=== PATIENT | male | born 1995 | race African-American/Black ===

== ENCOUNTER 2022-11-29 22:25 | Emergency (ER) | payer OTHER, SELFPAY ==
--- NOTE | ~2022-11-29 | XR_ITS ---
Clinical Indication: Chest pain PA and lateral views of the chest: Comparison: None Findings: The lungs are clear, without evidence of focal consolidation or pleural effusion. Cardiome diastinal silhouette is within normal limits. Bones and soft tissues are unremarkable. Impression: Normal chest. Reviewed, dictated and finalized at location . Impression: Normal chest.
[2022-11-29 22:29] VITALS: BP 146/85; PULSE 72; RESP 18; TEMP 36.4; O2SAT 100
--- NOTE | 2022-11-29 22:29 | ECG_ITS ---
Measurements Intervals [place] Rate: 62 P: 44 WI: 155 QRS: 39 QRSD: 90 T: 42 QT: 351 QTc: 359 Interpretive Statements SINUS RHYTHM NORMAL ECG NO PREVIOUS ECG AVAILABLE FOR COMPARISON Electronically Signed On 11-29-2022 22:38:05 CDT by Jono Reynoso D.O.
--- NOTE | 2022-11-29 23:00 | ED.CHESTPAIN ---
HPI - Chest Pain General Chief Complaint: Chest Pain Stated Complaint: Chest pain Time Seen by Provider: 11/29/22 22:58 History of Present Illness HPI narrative: Patient is a 27-year-old male here due to concerns over chest pain. Patient states has had a stabbing sensation in the center of his chest x3 days. No radiation. Pain is not worse with deep breaths or movement. Has had no shortness of breath, nausea or vomiting, fevers or chills. The also had a left-sided tooth ache x3 days that he believes is related to his chest pain. He has had dental extraction in the past but has not seen a dentist for many years. Related Data Allergies Allergy/AdvReac Type Severity Reaction Status Date / Time No Known Allergies Allergy Verified 11/29/22 22:26 Review of Systems Review of Systems: Gen.: Denies fevers or chills Eyes: Denies eye pain or visual change ENT: Reports dental pain Respiratory: Denies shortness of breath or cough CV: Reports chest pain GI: Denies abdominal pain nausea, emesis or diarrhea denies burning, urgency, frequency or hematuria Musculoskeletal: Denies back pain or muscle pain Neuro: Denies numbness, tingling, weakness or focal weakness Skin: Denies rash Except as documented, all other systems reviewed and negative Exam Narrative: APPEARANCE: Well appearing, no pain in distress, well-nourished. Head: Normocephalic and atraumatic. EYES: PERRLA/EOMI, conjunctivae clear NOSE: No nasal drainage EARS: External ear normal in appearance THROAT: Numerous dental caries throughout oropharynx. There is a cracked lower molar on the left that patient states is painful. No visible abscess. NECK: Supple. No adenopathy, no masses. RESPIRATORY: Airway patent, respirations nonlabored. Clear to auscultation bilaterally, no rales, rhonchi, wheezing. CARDIOVASCULAR: Regular rate and rhythm without murmurs, rubs, or gallops. ABDOMINAL: Normoactive bowel sounds. Soft, nontender, nondistended. No rebound tenderness or guarding. MUSCULOSKELETAL: Extremities are warm and well-perfused. Moves all extremities well. No edema. NEURO: Normal speech. No focal neurologic deficits. SKIN: Skin is warm and dry. No rashes. PSYCHIATRIC: Normal affect/mood.. Course Vital Signs Vital signs: Vital Signs Temperature 97.5 F L 11/29/22 22:29 Pulse Rate 72 11/29/22 22:29 Respiratory Rate 18 11/29/22 22:29 Blood Pressure 146/85 H 11/29/22 22:29 Pulse Oximetry 100 11/29/22 22:29 Oxygen Delivery Room Air 11/29/22 22:29 Temperature 98 F 11/30/22 01:02 Pulse Rate 69 11/30/22 01:02 Respiratory Rate 18 11/30/22 01:02 Blood Pressure 123/79 11/30/22 01:02 Pulse Oximetry 99 11/30/22 01:02 Oxygen Delivery Room Air 11/29/22 23:06 MDM - Chest Pain MDM Narrative Medical decision making narrative: 27-year-old male here for evaluation of dental pain and chest pain x2 days. He is nontoxic in appearance and has normal vital signs. He does have poor dentition and numerous dental caries in the area of his pain. Chest pain work-up reassuring, EKG labs and chest x-ray normal. Patient feeling proved after ibuprofen. Will DC home with antibiotics and for patient to keep outpatient dental f/u. Return precautions discussed and he voiced understanding. Lab Data 11/29/22 23:16 11/29/22 23:16 Labs: Lab Results 11/29/22 11/29/22 Range/Units 23:16 23:16 WBC 6.1 (4.5-10.0) K/mm3 RBC 5.75 (4.6-6.20) M/mm3 Hgb 15.9 (14.0-18.0) g/dL Hct 47.5 (42.0-52.0) % MCV 82.6 (80-100) fl MCH 27.7 (26-34) pg MCHC 33.5 (32-36) g/dl RDW 14.5 (11.5-14.5) % Plt Count 179 (150-375) k/mm3 MPV 10.6 H (7.4-10.4) fl Immature Gran % (Auto) 0.2 (0-0.5) % Neut % (Auto) 51.4 (45.5-73.1) % Lymph % (Auto) 39.7 (18.3-44.2) % [place] % (Auto) 6.4 (2.6-8.5) % Eos % (Auto) 1.8 (0-4.4) % Baso % (Auto) 0.5 (0.2-1.2) % Lymph # (Auto) 2.41 (0.9-3.2) K
[2022-11-29 23:06] VITALS: O2SAT 99
[2022-11-29 23:22] LABS: Basophils Percent Auto 0.5 % (0.2-1.2); Eosinophils Absolute Auto 0.1 K/mm3 (0-0.3); Eosinophils Percent Auto 1.8 % (0-4.4); Hematocrit 47.5 % (42.0-52.0); Hemoglobin 15.9 g/dL (14.0-18.0); Immature Granulocyte Absolute 0.01 K/mm3 (0.00-0.031); Immature Granulocyte Percent A 0.2 % (0-0.5); Lymphocytes Absolute Auto 2.41 K/mm3 (0.9-3.2); Lymphocytes Percent Auto 39.7 % (18.3-44.2); Mean Corpuscular HGB Conc 33.5 g/dl (32-36); Mean Corpuscular Hemoglobin 27.7 pg (26-34); Mean Corpuscular Volume 82.6 fl (80-100); Mean Platelet Volume 10.6 fl (7.4-10.4); Monocytes Absolute Auto 0.4 K/mm3 (0.1-0.6); Monocytes Percent Auto 6.4 % (2.6-8.5); Neutrophils Absolute Auto 3.1 K/mm3 (1.3-6.7); Neutrophils Percent Auto 51.4 % (45.5-73.1); Platelet Count Result 179 k/mm3 (150-375); Red Blood Count 5.75 M/mm3 (4.6-6.20); Red Cell Distribution Width 14.5 % (11.5-14.5); White Blood Count 6.1 K/mm3 (4.5-10.0)
[2022-11-29] MEDS: IBUPROFEN 600 MG TABLET PO (23:23)
[2022-11-29 23:45] LABS: Alanine Aminotransferase 34 U/L (6-50); Albumin Level 4.5 g/dL (3.5-5.1); Alkaline Phosphatase 59 U/L (38-126); Anion Gap 7 mmol/L (8-16); Aspartate Amino Transferase 29 U/L (17-59); Bilirubin,Total 0.4 mg/dL (0.2-1.3); Blood Urea Nitrogen 14 mg/dL (9-20); Calcium 8.9 mg/dL (8.4-10.2); Carbon Dioxide 26 mmol/L (22-30); Chloride 106 mmol/L (98-107); Estimated CRCL calculation 117 ml/min; Estimated Glomerular Filt Rate > 60; Glucose 105 mg/dL (65-110); Lipase 146 U/L (23-300); Sodium 139 mmol/L (137-145)
[2022-11-29 23:56] LABS: Troponin I < 0.012 ng/mL (0.000-0.034)
[2022-11-30 01:02] VITALS: BP 123/79; PULSE 69; RESP 18; TEMP 36.6; O2SAT 99
== END 2022-11-30 01:02 | disposition home or self-care (01) ==
PROVIDERS: Emergency Provider Physician Assistant
DX: R07.9 Chest pain, unspecified (principal); K08.89 Other specified disorders of teeth and supporting structures
CPT/HCPCS: 36415; 71046; 80053; 83690; 84484; 85025; 93005; 99284; A9270

== ENCOUNTER 2023-09-27 18:52 | Emergency (ER) | payer OTHER, SELFPAY ==
[2023-09-27 19:05] VITALS: BP 131/81; PULSE 73; RESP 16; TEMP 37.1; O2SAT 99
--- NOTE | 2023-09-27 19:27 | ED.GENADULT ---
HPI - General Adult General Chief complaint: Unspecified Stated complaint: chest pains, left leg pain Time Seen by Provider: 09/27/23 19:27 Source: patient Mode of arrival: ambulatory Limitations: no limitations History of Present Illness HPI narrative: 28 yo M presents with c/o chronic pain to L hip related to screws placed several years ago from old injury. Requesting something stronger than ibuprofen or tylenol . Also reports indigestion for 2 days. has not taken anything OTC. REquesting prescription. Asking for work note. All systems reviewed and negative except as noted above. Related Data Allergies Allergy/AdvReac Type Severity Reaction Status Date / Time No Known Allergies Allergy Verified 09/27/23 19:03 Review of Systems Review of Systems: CONSTITUTIONAL: Denies fever, chills, or sweats. EYES: Denies visual changes, redness, or discharge. ENT: Denies rhinorrhea, congestion, sore throat, or otalgia. CARDIOVASCULAR: Denies chest pain, palpitations, or edema. RESPIRATORY: Denies cough or dyspnea. GASTROINTESTINAL: Denies abdominal pain, nausea, vomiting, or diarrhea. Reports indigestion. GENITOURINARY: Denies dysuria or hematuria. SKIN: Denies rash or itching. MUSCULOSKELETAL: Denies back pain or myalgia. Reports left hip pain. NEUROLOGIC: Denies headache, numbness, or weakness. PSYCHIATRIC: Denies anxiety or depression. All other systems reviewed are negative, except as documented in HPI. PMFSH Comments At time of signature, agree with nursing past medical, surgical, social and family history. There is no relevant family history pertinent to the presenting complaint. Exam Narrative: GENERAL: This is a well-nourished, well-developed patient, in no apparent distress. HEAD: normocephalic, atraumatic. EYES: PERRL. Sclera clear/white. Vision is grossly intact. EARS: External ears normal NOSE: External nose normal NECK: Neck supple, non-tender without lymphadenopathy, masses or thyromegaly. CARDIOVASCULAR: Regular rate and rhythm without murmurs, gallops, or rubs. RESPIRATORY: Clear to auscultation. Breath sounds equal bilaterally. No wheezes, rales, or rhonchi. SKIN: warm, Dry, intact with no suspicious lesions or rash, good texture and turgor. NEURO: awake, alert, and oriented to person, place and time. There were no obvious focal neurologic abnormalities. EXTREMITIES: No joint tenderness, effusion, or edema noted. Course Course Level of Care: Express Care Visit Vital Signs Vital signs: Vital Signs Temperature 37.1 C 09/27/23 19:05 Pulse Rate 73 09/27/23 19:05 Respiratory Rate 16 09/27/23 19:05 Blood Pressure 131/81 09/27/23 19:05 Pulse Oximetry 99 09/27/23 19:05 Oxygen Delivery Room Air 09/27/23 19:05 Temperature 37.1 C 09/27/23 19:05 Pulse Rate 73 09/27/23 19:05 Respiratory Rate 16 09/27/23 19:05 Blood Pressure 131/81 09/27/23 19:05 Pulse Oximetry 99 09/27/23 19:05 Oxygen Delivery Room Air 09/27/23 19:05 Reviewed Medical Decision Making MDM Narrative Medical decision making narrative: Patient is aware of diagnosis, understands and agrees to treatment plan. Anticipatory guidance given. Patient agrees to follow-up as directed and is aware of reasons to seek care at the emergency department. Portions of this record may have been created with voice recognition software recommend patient follow-up with primary care physician for pain control for chronic left hip pain. Vital Signs Vital Signs: Vital Signs Temperature 37.1 C 09/27/23 19:05 Pulse Rate 73 09/27/23 19:05 Respiratory Rate 16 09/27/23 19:05 Blood Pressure 131/81 09/27/23 19:05 Pulse Oximetry 99 09/27/23 19:05 Oxygen Delivery Room Air 09/27/23 19:05 Temperature 37.1 C 09/27/23 19:05 Pulse Rate 73 09/27/23 19:05 Respiratory Rate 16 09/27/23 19:05 Blood Pressure 131/81 09/27/23 19:05 Pulse Oximetry 99 09/27/23 19:05 Oxygen
== END 2023-09-27 19:45 | disposition home or self-care (01) ==
PROVIDERS: Emergency Provider Nurse Practitioner Family
DX: K30 Functional dyspepsia (principal); G89.21 Chronic pain due to trauma; M25.552 Pain in left hip; K21.9 Gastro-esophageal reflux disease without esophagitis
CPT/HCPCS: 99213; G0463

== ENCOUNTER 2024-01-21 06:29 | Emergency (ER) | payer OTHER, MEDICAID, SELFPAY ==
--- NOTE | ~2024-01-21 | XR_ITS ---
Clinical Indication: Cough PA and lateral views of the chest: Comparison: 11/29/2022 Findings: The lungs are clear, without evidence of focal consolidation or pleural effusion. Cardiome diastinal silhouette is within normal limits. Bones and soft tissues are unremarkable. Impression: Normal chest. Reviewed, dictated and finalized at location . Impression: Normal chest.
[2024-01-21 06:28] VITALS: BP 121/83; PULSE 84; RESP 18; TEMP 36.7; O2SAT 100; O2SAT 99
--- NOTE | 2024-01-21 06:39 | ECG_ITS ---
SEE SCANNED COPY FOR CONFIRMED REPORT MTDD
[2024-01-21 06:48] LABS: Basophils Percent Auto 0.5 % (0.2-1.2); Eosinophils Absolute Auto 0.1 K/mm3 (0-0.3); Eosinophils Percent Auto 1.6 % (0-4.4); Hematocrit 51.4 % (42.0-52.0); Hemoglobin 16.8 g/dL (14.0-18.0); Immature Granulocyte Absolute 0.04 K/mm3 (0.00-0.031); Immature Granulocyte Percent A 0.5 % (0-0.5); Lymphocytes Absolute Auto 2.89 K/mm3 (0.9-3.2); Lymphocytes Percent Auto 39.3 % (18.3-44.2); Mean Corpuscular HGB Conc 32.7 g/dl (32-36); Mean Corpuscular Hemoglobin 27.2 pg (26-34); Mean Corpuscular Volume 83.2 fl (80-100); Mean Platelet Volume 10.3 fl (7.4-10.4); Monocytes Absolute Auto 0.4 K/mm3 (0.1-0.6); Monocytes Percent Auto 5.9 % (2.6-8.5); Neutrophils Absolute Auto 3.8 K/mm3 (1.3-6.7); Neutrophils Percent Auto 52.2 % (45.5-73.1); Platelet Count Result 190 k/mm3 (150-375); Red Blood Count 6.18 M/mm3 (4.6-6.20); Red Cell Distribution Width 14.6 % (11.5-14.5); White Blood Count 7.4 K/mm3 (4.5-10.0)
[2024-01-21 07:02] LABS: Alanine Aminotransferase 30 U/L (6-50); Albumin Level 4.7 g/dL (3.5-5.1); Alkaline Phosphatase 60 U/L (38-126); Anion Gap 10 mmol/L (4-12); Aspartate Amino Transferase 30 U/L (17-59); Bilirubin,Total 0.8 mg/dL (0.2-1.3); Blood Urea Nitrogen 11 mg/dL (9-20); Calcium 8.8 mg/dL (8.4-10.2); Carbon Dioxide 21 mmol/L (22-30); Chloride 109 mmol/L (98-107); Estimated CRCL calculation 117 ml/min; Estimated Glomerular Filt Rate > 60; Glucose 108 mg/dL (65-110); Sodium 140 mmol/L (137-145)
[2024-01-21 07:18] VITALS: BP 143/91; PULSE 84; RESP 22; O2SAT 100
[2024-01-21 07:25] LABS: Influenza A QL RT-PCR Negative (Negative); Influenza B QL RT-PCR Negative (Negative); RSV RNA, RT-PCR Negative (Negative); SARS-CoV-2 RNA PCR Negative (Negative)
[2024-01-21] MEDS: KETOROLAC 15 MG/ML VIAL (*BKC) IV PUSH (07:34)
--- NOTE | 2024-01-21 07:41 | ED.SOB ---
HPI - SOB/Dyspnea General Chief Complaint: Shortness of Breath/Dyspnea Stated Complaint: cp and sob awoken from sleep Time Seen by Provider: 01/21/24 06:58 History of Present Illness HPI Narrative: Patient states that he had some epigastric discomfort and nausea, got up, felt like something was stuck in his throat, cough to few times, the abdominal pain has resolved and so was nausea and so as a feeling of something in his chest, however he is still having a cough, and some chest pain when he coughs. Related Data Allergies Allergy/AdvReac Type Severity Reaction Status Date / Time No Known Allergies Allergy Verified 09/27/23 19:03 Review of Systems Review of Systems: All systems reviewed & are unremarkable except as noted in HPI and below Exam Narrative: EXAMINATION OF ORGAN SYSTEMS/BODY AREAS: Constitutional: Vital signs per nursing GENERAL:[No acute distress, non-toxic appearing.] HEAD: Normal with no signs of head trauma. EYES: EOMI, conjunctiva normal ENT: Hearing grossly intact LUNGS: Nonlabored breathing. Clear to auscultation bilaterally HEART: [Regular rate and rhythm] ABD: [Soft], [nontender to palpation] EXT: Normal range of motion SKIN: [No rashes or lesions.] NEURO: [Alert and oriented x 3. No gross focal sensory or strength deficits.] PSYCH: Normal affect Course Vital Signs Vital signs: Vital Signs Temperature 98.1 F 01/21/24 06:28 Pulse Rate 84 01/21/24 06:28 Respiratory Rate 18 01/21/24 06:28 Blood Pressure 121/83 01/21/24 06:28 Pulse Oximetry 99 01/21/24 06:28 Oxygen Delivery Room Air 01/21/24 06:28 Temperature 98.1 F 01/21/24 08:04 Pulse Rate 62 01/21/24 08:21 Respiratory Rate 18 01/21/24 08:21 Blood Pressure 138/90 01/21/24 08:21 Pulse Oximetry 99 01/21/24 08:21 Oxygen Delivery Room Air 01/21/24 06:28 MDM - SOB/Dyspnea MDM Narrative Medical decision making narrative: ED COURSE AND MEDICAL DECISION MAKIN-year-old male presenting with cough and shortness of breath. EKG done in triage negative for acute ischemic changes. Cardiac workup is initiated. EKG: Performed in triage and interpreted by me. Normal sinus rhythm. Rate [76]. Normal axis. MI normal. QRS duration normal. QTc normal. No pathologic Q waves. No ST segment elevation or depression to suggest acute ischemia. No RV strain pattern. Chest x-ray on my independent interpretation with no consolidation or pneumothorax No acute ischemic changes on EKG or risk factors making ACS unlikely. Wells low risk with negative PERC making PE unlikely. Presentation not consistent with dissection or aneurysm without radiation of pain or pulse deficits. CXR negative for mediastinal widening. No abdominal pain or signs of sepsis that would be concerning for esophageal perforation or mediastinitis. No cardiomegaly or JVD to suggest pericardial effusion/tamponade. On repeat evaluation just prior to discharge, the patient is no acute distress. I had a long discussion with the patient and with shared decision making, [he] is comfortable with outpatient management. [He] was given clear return instructions by myself in person as well as on discharge paperwork. Procedures: Pulse oximetry interpretation - not hypoxic. EKG interpretation. Review of medical records. Lab Data 01/21/24 06:42 01/21/24 06:42 Labs: Lab Results 01/21/24 Range/Units 06:42 WBC 7.4 (4.5-10.0) K/mm3 RBC 6.18 (4.6-6.20) M/mm3 Hgb 16.8 (14.0-18.0) g/dL Hct 51.4 (42.0-52.0) % MCV 83.2 (80-100) fl MCH 27.2 (26-34) pg MCHC 32.7 (32-36) g/dl RDW 14.6 H (11.5-14.5) % Plt Count 190 (150-375) k/mm3 MPV 10.3 (7.4-10.4) fl Immature Gran % (Auto) 0.5 (0-0.5) % Neut % (Auto) 52.2 (45.5-73.1) % Lymph % (Auto) 39.3 (18.3-44.2) % [place] % (Auto) 5.9 (2.6-8.5) % Eos % (Auto) 1.6 (0-4.4) % Baso % (Auto) 0.5 (0.2-1.2) % Lymph # (Auto) 2.89 (0.9-3.2) K/mm3 [place] #
[2024-01-21 08:04] VITALS: TEMP 36.7
[2024-01-21 08:21] VITALS: BP 138/90; PULSE 62; RESP 18; O2SAT 99
== END 2024-01-21 08:42 | disposition home or self-care (01) ==
PROVIDERS: Emergency Medicine; Emergency Provider Emergency Medicine
DX: R05.9 Cough, unspecified (principal); Z20.822 Contact with and (suspected) exposure to COVID-19
CPT/HCPCS: 36415; 71046; 80053; 85025; 87637; 93005; 96374; 99284; J1885

== ENCOUNTER 2024-03-07 08:52 | Emergency (ER) | payer OTHER, MEDICAID, SELFPAY ==
--- NOTE | ~2024-03-07 | XR_ITS ---
EXAMINATION: XR chest 2V DATE: 03/07/2024 09:21 INDICATION: Cough. Abdominal pain. Chills. TECHNIQUE: Frontal and lateral views of the chest were obtained. COMPARISON: Chest 2 views 01/21/2024 FINDINGS: There is no pneumonia, pleural effusion, or pneumothorax. The heart size is normal. IMPRESSION: 1. No acute cardiopulmonary disease. Reviewed, dictated and finalized at location A.
--- NOTE | ~2024-03-07 | US_ITS ---
EXAMINATION: US right upper quadrant DATE: 03/07/2024 09:52 INDICATION: Right upper quadrant abdominal pain. TECHNIQUE: Multiple grayscale and Doppler ultrasound images of the abdomen were obtained. COMPARISON: None FINDINGS: The visualized portions of the head of the pancreas are normal. The liver is normal without focal lesion. There is antegrade flow in main portal vein. The gallbladder is normal in size. No gal lstones or gallbladder wall thickening. There is no sonographic Liu's sign. The common duct is nor mal and measures 3 mm. IMPRESSION: 1. Normal right upper quadrant ultrasound. Reviewed, dictated and finalized at location A.
[2024-03-07 08:58] VITALS: BP 137/81; PULSE 80; RESP 20; TEMP 37.5; O2SAT 100
[2024-03-07 09:00] VITALS: O2SAT 99
[2024-03-07 09:01] VITALS: BP 137/81; O2SAT 99
[2024-03-07] MEDS: KETOROLAC 30 MG/ML VIAL (*BKC) IV PUSH (09:10)
[2024-03-07] MEDS: SODIUM CHLORIDE 0.9% IV 1,000 ML 999 ML IV CONT (09:10)
[2024-03-07 09:12] LABS: Basophils Percent Auto 0.4 % (0.2-1.2); Eosinophils Percent Auto 0.4 % (0-4.4); Hematocrit 46.6 % (42.0-52.0); Hemoglobin 15.5 g/dL (14.0-18.0); Immature Granulocyte Absolute 0.02 K/mm3 (0.00-0.031); Immature Granulocyte Percent A 0.3 % (0-0.5); Lymphocytes Absolute Auto 0.84 K/mm3 (0.9-3.2); Lymphocytes Percent Auto 10.9 % (18.3-44.2); Mean Corpuscular HGB Conc 33.3 g/dl (32-36); Mean Corpuscular Hemoglobin 27.4 pg (26-34); Mean Corpuscular Volume 82.5 fl (80-100); Mean Platelet Volume 10.4 fl (7.4-10.4); Monocytes Absolute Auto 0.7 K/mm3 (0.1-0.6); Monocytes Percent Auto 8.6 % (2.6-8.5); Neutrophils Absolute Auto 6.1 K/mm3 (1.3-6.7); Neutrophils Percent Auto 79.4 % (45.5-73.1); Platelet Count Result 145 k/mm3 (150-375); Red Blood Count 5.65 M/mm3 (4.6-6.20); Red Cell Distribution Width 14.1 % (11.5-14.5); White Blood Count 7.7 K/mm3 (4.5-10.0)
[2024-03-07 09:28] LABS: Alanine Aminotransferase 23 U/L (6-50); Albumin Level 4.5 g/dL (3.5-5.1); Alkaline Phosphatase 65 U/L (38-126); Anion Gap 5 mmol/L (4-12); Aspartate Amino Transferase 26 U/L (17-59); Bilirubin,Total 0.8 mg/dL (0.2-1.3); Blood Urea Nitrogen 9 mg/dL (9-20); Carbon Dioxide 28 mmol/L (22-30); Chloride 106 mmol/L (98-107); Estimated CRCL calculation 94 ml/min; Estimated Glomerular Filt Rate > 60; Glucose 94 mg/dL (65-110); Lipase 152 U/L (23-300); Potassium 3.8 mmol/L (3.4-5.0); Sodium 139 mmol/L (137-145)
[2024-03-07 09:41] LABS: D Dimer 0.35 ug/mL (<0.48)
--- NOTE | 2024-03-07 10:48 | ED.ABDPAIN ---
HPI - Abdominal Pain General Chief Complaint: Abdominal Pain Stated Complaint: RLQ ABD PAIN,CHILLS Time Seen by Provider: 03/07/24 08:56 History of Present Illness HPI narrative: Patient is a 28-year-old male who presents ER with right-sided abdominal pain and chest pain. Ongoing over last week. Pain chest is worse with breathing also with pushing on the upper abdomen. No pain with eating or drinking. No diarrhea. No vomiting. reports mild fevers and chills. No productive cough but does have slight cough. No postnasal drip or sore throat. Related Data Allergies Allergy/AdvReac Type Severity Reaction Status Date / Time No Known Allergies Allergy Verified 09/27/23 19:03 Review of Systems Review of Systems: All systems reviewed & are unremarkable except as noted in HPI and below Constitutional: Constitutional: Reports chills, Reports fatigue and Reports fever(s) ENT: Reports system reviewed and no additional complaints, except as documented Cardiovascular: Cardiovascular: Reports chest pain, Denies rapid heart rate and Denies radiating jaw, neck or arm pain Respiratory: Respiratory: Denies chest congestion, Reports cough, Denies dyspnea and Denies wheezing Gastrointestinal: Gastrointestinal: Reports no additional gastrointestinal complaints Musculoskeletal: Musculoskeletal: Reports no additional musculoskeletal complaints PMFSH Past Medical History Medical History (Updated 03/07/24 @ 10:53 by Jacky Santana MD) Healthy adult male Exam Narrative: GENERAL: Well-appearing, well-nourished, and in no acute distress. HEAD: Normocephalic, atraumatic. ENT: Mucous membranes moist. CHEST: Clear to auscultation. No respiratory distress. HEART: Regular rate and rhythm. Normal peripheral pulses. ABDOMEN: Soft, mild TTP to RUQ, nondistended. EXTREMITIES: Normal range of motion. No edema. SKIN: Warm, dry, no rash. NEURO: Alert and oriented x3. PSYCH: Normal mood and affect. Course Course Emergency Course: Negative D-dimer. Chest x-ray and ultrasound unremarkable. Suspect pleurisy and possible developing pneumonia giving fevers and chills. Will discharge with a Z-Jonathan and anti-inflammatories. Vital Signs Vital signs: Vital Signs Temperature 99.5 F 03/07/24 08:58 Pulse Rate 80 03/07/24 08:58 Respiratory Rate 20 03/07/24 08:58 Blood Pressure 137/81 03/07/24 08:58 Pulse Oximetry 100 03/07/24 08:58 Temperature 99.5 F 03/07/24 08:58 Pulse Rate 80 03/07/24 08:58 Respiratory Rate 20 03/07/24 08:58 Blood Pressure 137/81 03/07/24 08:58 Pulse Oximetry 100 03/07/24 08:58 MDM - Abdominal Pain Lab Data 03/07/24 09:06 03/07/24 09:06 Labs: Lab Results 03/07/24 Range/Units 09:06 WBC 7.7 (4.5-10.0) K/mm3 RBC 5.65 (4.6-6.20) M/mm3 Hgb 15.5 (14.0-18.0) g/dL Hct 46.6 (42.0-52.0) % MCV 82.5 (80-100) fl MCH 27.4 (26-34) pg MCHC 33.3 (32-36) g/dl RDW 14.1 (11.5-14.5) % Plt Count 145 L (150-375) k/mm3 MPV 10.4 (7.4-10.4) fl Immature Gran % (Auto) 0.3 (0-0.5) % Neut % (Auto) 79.4 H (45.5-73.1) % Lymph % (Auto) 10.9 L (18.3-44.2) % [place] % (Auto) 8.6 H (2.6-8.5) % Eos % (Auto) 0.4 (0-4.4) % Baso % (Auto) 0.4 (0.2-1.2) % Lymph # (Auto) 0.84 L (0.9-3.2) K/mm3 [place] # (Auto) 0.7 H (0.1-0.6) K/mm3 Eos # (Auto) 0.0 (0-0.3) K/mm3 Baso # (Auto) 0.0 (0.0-0.1) K/mm3 Abs Immat Gran (auto) 0.02 (0.00-0.031) K/mm3 Absolute Neuts (auto) 6.1 (1.3-6.7) K/mm3 Absolute Nucleated RBC 0.000 (0.0-0.012) K/mm3 Nucleated RBC % 0.0 (0.0-0.2) % D-Dimer 0.35 (<0.48) ug/mL Sodium 139 (137-145) mmol/L Potassium 3.8 (3.4-5.0) mmol/L Chloride 106 (98-107) mmol/L Carbon Dioxide 28 (22-30) mmol/L Anion Gap 5 (4-12) mmol/L BUN 9 (9-20) mg/dL Creatinine 1.00 (0.7-1.3) mg/dL Estim Creat Clear Calc 94 ml/min Estimated GFR > 60 (59 - ) Glucose 94 (65-110) mg/dL
== END 2024-03-07 11:11 | disposition home or self-care (01) ==
PROVIDERS: Emergency Provider Emergency Medicine
DX: J18.9 Pneumonia, unspecified organism (principal); R09.1 Pleurisy
CPT/HCPCS: 36415; 71046; 76705; 80053; 83690; 85025; 85380; 96361; 96374; 99284; J1885; J7030

== ENCOUNTER 2024-05-20 19:30 | Emergency (ER) | payer OTHER, MEDICAID, SELFPAY ==
[2024-05-20 19:35] VITALS: BP 119/67; PULSE 71; RESP 20; TEMP 37.3; O2SAT 97
[2024-05-20 19:52] LABS: EDUAAPPEAR Cloudy; EDUABILI Negative (Negative); EDUABLOOD Negative (Negative); EDUACOLOR1 Yellow; EDUAGLUCOSE Negative (Negative); EDUAKETONE Trace (Negative); EDUALEUKO Negative (Negative); EDUANITRATE Negative (Negative); EDUAPROTEIN Trace (Negative); EDUAUROBILI 0.2
--- NOTE | 2024-05-20 20:00 | ED.GENADULT ---
HPI - General Adult General Chief complaint: Urogenital-Male Stated complaint: STD/UTI Source: patient Mode of arrival: ambulatory Limitations: no limitations History of Present Illness HPI narrative: Patient presents for evaluation of urinary symptoms for last week. Symptoms include dysuria and urinary frequency. He denies any fever, chills, urethral discharge, testicular pain, low back pain, nausea, vomiting, diarrhea. He is sexually active with female partner. She recently had gonorrhea, chlamydia, Trichomonas testing which was all negative. Related Data Allergies Allergy/AdvReac Type Severity Reaction Status Date / Time No Known Allergies Allergy Verified 05/20/24 19:37 Review of Systems Review of Systems: CONSTITUTIONAL: Denies fever, chills, or sweats. EYES: Denies visual changes, redness, or discharge. ENT: Denies rhinorrhea, congestion, sore throat, or otalgia. CARDIOVASCULAR: Denies chest pain, palpitations, or edema. RESPIRATORY: Denies cough or dyspnea. GASTROINTESTINAL: Denies abdominal pain, nausea, vomiting, or diarrhea. GENITOURINARY: Reports dysuria and urinary frequency. Denies urethral discharge SKIN: Denies rash or itching. MUSCULOSKELETAL: Denies back pain, joint pain, or myalgia. NEUROLOGIC: Denies headache, numbness, dizziness, or weakness. PSYCHIATRIC: Denies anxiety or depression. [facility] Past Medical History Medical History Healthy adult male Surgical History Surgical History No pertinent past surgical history Family History Family History (Updated 05/20/24 @ 20:02 by Buck Lipscomb, [facility], ) Mother Family history non-contributory Social History Social History Smoking status: Never smoker Substance use type: marijuana Gender identity (if verbalized by the patient): Male Sexual Orientation (if Verbalized by the Patient): Straight or Heterosexual Spiritual care concerns: No Exam Narrative: GENERAL: Well-appearing, well-nourished, and in no acute distress. HEAD: Normocephalic, atraumatic. EYES: PERRLA and EOMI. ENT: Nares clear, no rhinorrhea or epistaxis. Mucous membranes moist. Oropharynx without tonsillar hypertrophy exudate or other lesions. Bilateral TMs pearly reeder nonbulging NECK: Supple. No adenopathy or masses. No carotid bruits or JVD CHEST: Clear to auscultation. No respiratory distress. No wheezes rales or rhonchi HEART: Regular rate and rhythm. No murmur heard. Normal peripheral pulses. ABDOMEN: Soft, nontender, nondistended, normal active bowel sounds. GENITAL: no external genital lesions. No testicular masses or tenderness. No urethral discharge EXTREMITIES: Normal range of motion. No edema. SKIN: Warm, dry, no rash. NEURO: No focal deficits. Alert and oriented x3. PSYCH: Normal mood and affect. Course Course Emergency Course: this is a 28-year-old male who presented for evaluation of urinary frequency and dysuria. No evidence of infection on urine dipstick. STI testing was performed. Patient elected to be treated empirically today with Rocephin. Will discharge with doxycycline and Flagyl. Discussed safer sex practices. Follow-up with primary provider. Go to the ER for worsening symptoms. Patient in agreement with plan of care. Level of Care: Express Care Visit Vital Signs Vital signs: Vital Signs Temperature 37.3 C 05/20/24 19:35 Pulse Rate 71 05/20/24 19:35 Respiratory Rate 20 05/20/24 19:35 Blood Pressure 119/67 05/20/24 19:35 Pulse Oximetry 97 05/20/24 19:35 Oxygen Delivery Room Air 05/20/24 19:35 Temperature 37.3 C 05/20/24 19:35 Pulse Rate 71 05/20/24 19:35 Respiratory Rate 20 05/20/24 19:35 Blood Pressure 119/67 05/20/24 19:35 Pulse Oximetry 97 05/20/24 19:35 Oxygen Delivery Room Air 05/03
[2024-05-20] MEDS: cefTRIAXone 500 MG VIAL IM (20:06)
[2024-05-20] MEDS: LIDOCAINE HCL 1% LOCAL INJ 2 ML AMPUL 1 ML INFILTRATE (20:09)
[2024-05-21 19:57] LABS: Trichomonas Vag PCR NOT DETECTED (NOT DETECTE)
[2024-05-21 20:20] LABS: Chlamydia trachomatis NOT DETECTED (NOT DETECTE); Neisseria gonorrhoeae PCR NOT DETECTED (NOT DETECTE)
== END 2024-05-20 20:15 | disposition home or self-care (01) ==
PROVIDERS: Emergency Provider Nurse Practitioner
DX: R30.0 Dysuria (principal); R35.0 Frequency of micturition; Z11.3 Encounter for screening for infections with a predominantly sexual mode of transmission; F12.90 Cannabis use, unspecified, uncomplicated
CPT/HCPCS: 81003; 87491; 87591; 87661; 96372; 99213; G0463; J0696

== ENCOUNTER 2024-06-08 17:11 | Emergency (ER) | payer OTHER, MEDICAID, SELFPAY ==
--- NOTE | ~2024-06-08 | XR_ITS ---
XR tibia fibula LT 2V Ordering provider: Cristela Charles PA-C History: . laceration to lateral side of LLE . Comparison: None. FINDINGS: BONES: No acute fracture or dislocation. JOINT SPACES: Normal. SOFT TISSUES: Normal. IMPRESSION: No acute osseous abnormality left leg. Reviewed, dictated and finalized at location A.
[2024-06-08 17:30] VITALS: BP 128/82; PULSE 75; RESP 18; TEMP 37.1; O2SAT 97
--- NOTE | 2024-06-08 18:11 | ED.WOUNDLAC ---
HPI - Wound/Laceration General Chief Complaint: Wound/Laceration Stated Complaint: left leg lac Time Seen by Provider: 06/08/24 17:29 Source: patient Mode of arrival: ambulatory Limitations: no limitations History of Present Illness HPI narrative: This is a 28 year old male that presents to the ER for laceration to the left lower leg. Reports he was chasing his son. He thinks he caught his leg on a brick. Looked down and saw blood on his pant leg. He is not up to date on tetanus. Denies decreased ROM or numbness. Related Data Allergies Allergy/AdvReac Type Severity Reaction Status Date / Time No Known Allergies Allergy Verified 06/08/24 18:10 Review of Systems Review of Systems: CONSTITUTIONAL: Denies fever SKIN: Reports laceration MUSCULOSKELETAL: Denies joint pain, or myalgia. NEUROLOGIC: Denies numbness All systems reviewed & are unremarkable except as noted in HPI and below PMFSH Past Medical History Medical History Healthy adult male Surgical History Surgical History No pertinent past surgical history Family History Family History (Updated 05/20/24 @ 20:02 by SHIVAM David, ) Mother Family history non-contributory Social History Social History Smoking status: Never smoker Substance use type: marijuana Gender identity (if verbalized by the patient): Male Sexual Orientation (if Verbalized by the Patient): Straight or Heterosexual Spiritual care concerns: No Exam Narrative: GENERAL: Well-appearing, well-nourished, and in no acute distress. HEAD: Normocephalic, atraumatic. EYES: EOMI. EXTREMITIES: Normal range of motion. No edema. 10cm linear laceration into subcutaneous tissue to the left lower leg laterally. Normal DP pulse. Normal sensation SKIN: Warm, dry, no rash. NEURO: No focal deficits. Alert and oriented x3. PSYCH: Normal mood and affect Course Course Emergency Course: Patient educated on further wound care Vital Signs Vital signs: Vital Signs Temperature 98.7 F 06/08/24 17:30 Pulse Rate 75 06/08/24 17:30 Respiratory Rate 18 06/08/24 17:30 Blood Pressure 128/82 06/08/24 17:30 Pulse Oximetry 97 06/08/24 17:30 Oxygen Delivery Room Air 06/08/24 17:30 Temperature 98.7 F 06/08/24 17:30 Pulse Rate 75 06/08/24 17:30 Respiratory Rate 18 06/08/24 17:30 Blood Pressure 128/82 06/08/24 17:30 Pulse Oximetry 97 06/08/24 17:30 Oxygen Delivery Room Air 06/08/24 17:30 Procedures Laceration Laceration 1: Date: 06/08/24 Time: 19:15 Site: lower extremity Side (If applicable): left Size (cm): 10 Description: linear Depth: simple, single layer Local Anesthetic: lidocaine 1%, bupivacaine 0.5% and with epi Amount of anesthesia used (mL): 8 Pre-repair: wound explored and irrigated ====== Skin Level ====== Skin layer closed with: nylon Size (cm): 3-0 Number of sutures: 10 Technique: simple, interrupted and horizontal mattress ====== Subcutaneous Layer ====== ====== Muscle Layer ====== ====== Tendon Layer ====== MDM - Wound/Laceration MDM Narrative Medical decision making narrative: Patient presents to the emergency department for laceration to the left lower leg. He was updated on tetanus vaccination. His wound was irrigated and closed with sutures. He is neurovascularly intact. Left tib-fib x-ray without acute osseous abnormality or evidence of foreign body. Was educated on further wound care. He is to follow up with primary provider. He was given warnings to return to the ER Differential Diagnosis Differential diagnosis: Likely laceration, abrasion and avulsion of skin Imaging Data Radiologist's impression: ITS Impres
[2024-06-08] MEDS: TETANUS,DIPHTHERIA,AC PERTUSSIS ADULT (0.5 ML) BOOSTRIX IM (18:19)
[2024-06-08 19:33] VITALS: BP 134/76; PULSE 68; RESP 18; O2SAT 98
== END 2024-06-08 19:33 | disposition home or self-care (01) ==
PROVIDERS: Emergency Provider Physician Assistant
DX: S81.812A Laceration without foreign body, left lower leg, initial encounter (principal); Z23 Encounter for immunization; W22.8XXA Striking against or struck by other objects, initial encounter
CPT/HCPCS: 12004; 73590; 90471; 90715; 99283